=== PATIENT | male | born 2000 | race Caucasian/White ===

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

== ENCOUNTER → 2019-01-14 | Outpatient (CLI) | payer OTHER ==
[~2019-01-14] MED LIST: CLAR5CHW; PROV90AE
--- NOTE | 2019-01-15 07:47 | REP ---
Chest x-ray: Three views. History: Shortness of breath. Comparison study: March 01, 2009. Findings: The lungs are symmetrically aerated and clear. The pleural angles are sharp. Cardiomediastinal silhouette and bony thorax are unremarkable. Pulmonary vasculature is not increased. Impression: Negative chest x-ray. Electronically Signed by Pablo Najera MD 01/14/2019 01:59 P
== END ==
LOC: M LRY 13:17
PROVIDERS: ATTEND Nurse Practitioner Family
DX: R06.02 Shortness of breath (principal)